=== PATIENT | male | born 1960 ===

== ENCOUNTER 2016-05-12 18:14 | Emergency (ER) | payer OTHER ==
[2016-05-12 18:52] VITALS: BP 111/97
--- NOTE | 2016-05-12 19:19 | UC ---
Respiratory Complaint HPI - HPI Summary HPI Summary: The patient comes in today for: 1. Cough and soreness in the upper right chest Onset: 1 week ago. Palliative/provocative: Coughing makes the right chest hurt and laying on that side. Quality: Dry-itchy cough. Region: Lungs. Severity: 8/10 at this time. But, he appears more like 4/10 Time: Cough comes and goes. Associated symptoms: Last chest x-ray (he had a CT 2-3 weeks ago): negative. "Something was found on the left lung." He was told that "nothing has changed." Chest pain: JUst upper right chest. Dyspnea: only with exertion. Not now. Rhinitis: Only in the morning. * - History of Current Complaint Chief Complaint: UCGeneralIllness Stated Complaint: COUGH CONGESTION Time Seen by Provider: 05/12/16 19:13 Hx Obtained From: Patient - Allergies/Home Medications Allergies/Adverse Reactions: Allergies Allergy/AdvReac Type Severity Reaction Status Date / Time bee stings Allergy Severe Swelling Uncoded 05/12/16 18:52 Home Medications: Home Medications Benazepril (NF) [Lotensin (NF)] 5 mg PO DAILY 05/12/16 [History Confirmed ] Budesonide/Formote 160/4.5(NF) [Symbicort 160/4.5 (NF)] 2 puff INH BID 05/12/16 [History Confirmed 05/12/16] Citalopram TAB* [CeleXA TAB*] 20 mg PO DAILY 05/12/16 [History Confirmed ] Cyclobenzaprine TAB* [Flexeril TAB*] 5 mg PO BID 05/12/16 [History Confirmed ] Diclofenac Sodium (Topical) [Pennsaid] 2 % TD BID PRN 05/12/16 [History Confirmed 05/12/16] Omeprazole CAP* [Prilosec CAP* 20 MG] 20 mg PO DAILY 05/12/16 [History Confirmed 05/12/16] celeCOXIB CAP* [CeleBREX CAP*] 200 mg PO BEDTIME 05/12/16 [History Confirmed ] PMH/Surg Hx/FS Hx/Imm Hx Previously Healthy: No - Low back pain, arthritis Endocrine History Of: Denies: Diabetes, Thyroid Disease, Hyperthyroidism, Hypothyroidism, Dyslipidemia Cardiovascular History Of: Reports: Hypertension Denies: Cardiac Disorders, Pacemaker/ICD, Myocardial Infarction, Congestive Heart Failure, Atrial Fibrillation, Deep Vein Thrombosis, Bleeding Disorders Respiratory History Of: Reports: COPD Denies: Asthma, Bronchitis, Pneumonia, Pulmonary Embolism GI/ History Of: Reports: Gastroesophageal Reflux Denies: Ulcer, Gastrointestinal Bleed, Gall Bladder Disease, Kidney Stones, Diverticulitis, Renal Disease, Urosepsis Neurological History Of: Denies: TIA, CVA, Dementia, Seizures, Migraine Psychological History Of: Reports: Depression Denies: Bipolar Disorder, Schizophrenia, Post Traumatic Stress Disorder Cancer History Of: Denies: Lung Cancer, Colorectal Cancer, Breast Cancer, Prostate Cancer, Cervical Cancer Other History Of: Negative For: HIV, Hepatitis B, Hepatitis C, Anticoagulant Therapy - Surgical History Surgical History: Yes Surgery Procedure, Year, and Place: JAW WIRED - ( WIRE IS REMOVED) -YRS AGO - Family History Known Family History: Positive: Cardiac Disease, Diabetes Negative: Hypertension - Social History Occupation: Disabled - From back. Alcohol Use: Rare Substance Use Type: Marijuana Substance Use Comment - Amount & Last Used: occasional use Smoking Status (MU): Light Every Day Tobacco Smoker Amount Used/How Often: < 1/2 ppd - Immunization History Most Recent Influenza Vaccination: 3063-3559 Most Recent Pneumonia Vaccination: 2016 Review of Systems Constitutional: Negative Skin: Negative Eyes: Negative ENT: Negative, Sore Throat Respiratory: Cough Cardiovascular: Chest Pain Gastrointestinal: Negative Genitourinary: Negative All Other Systems Reviewed And Are Negative: Yes Physical Exam Triage Information Reviewed: Yes Appearance: Well-Appearing, No Pain Distress Vital Signs: Initial Vital Signs Temp 99 F 05/12/16 18:48 Pulse 91 05/12/16 18:48 Resp 17 05/12/16 18:48 BP 111/97 05/12/16 18:48 Pulse Ox 96 05/12/16 18:48 Vital Signs Reviewed: Yes Eyes: Positive: Conjunctiva Clear. Negative: Discharge ENT: Positive: Hearing grossly normal. Negative: Pharyngeal erythema, Nasal congestion, Nasal drainage, TM bulging, TM dull, TM red, Tonsillar swelling, Tonsillar exudate Dental: Negative: Gross Decay/Caries @, Dental Fracture @ Neck: Positive: Supple, Nontender, No Lymphadenopathy. Negative: Nuchal Rigidity Respiratory: Positive: Lungs clear, No respiratory distress, No accessory muscle use Cardiovascular: Positive: RRR, No Murmur Abdomen Description: Positive: Nontender, No Organomegaly, Soft. Negative: Distended, Guarding Musculoskeletal: Positive: Strength Intact, ROM Intact, No Edema, Other: - There is tenderness of the upper right rights (9th to 10th). No subcutaneous emphasema, no ecchymosis. Neurological: Positive: Alert, Muscle Tone Normal Psychological: Positive: Age Appropriate Behavior, Consolable Skin: Negative: rashes, breakdown UC Diagnostic Evaluation - Laboratory O2 Sat by Pulse Oximetry: 96 - Radiology Xray Interpretation: Positive (See Comments) - Non-displaced rib fractures 9 and 10th. Radiology Interpretation Completed By: Radiologist Respiratory Course/Dx - Differential Dx/Diagnosis Provider Diagnoses: Right rib fractures (9 and 10). COPD Discharge - Discharge Plan Condition: Stable Disposition: HOME Patient Education Materials: Rib Fracture (ED), COPD (Chronic Obstructive Pulmonary Disease) (ED) Referrals: Flory Davies PA [Primary Care Provider] - 1 Week Additional Instructions: please stop the albuterol inhaler. Please take the ipratropium inhaler instead of your albuterol inhaler. With the other medications you will be given there is less drug interaction.
[2016-05-12] MEDS ORDERED: HYDROcodone/ACETAMIN 5-325 MG* 1 TAB PO ONE (19:31)
[2016-05-12] MEDS ORDERED: Albuterol 2.5 MG/3 ML NEB.SOL* (0.083%) INH ONE (19:55)
[2016-05-12] MEDS ORDERED: Ipratropium 0.5MG/2.5ML NEB* 0.5 MG/2.5 ML NEB.SOLN INH ONE (19:56)
--- NOTE | 2016-05-12 20:33 | RAD ---
INDICATION: Cough and chest pain and right anterior rib pain. COMPARISON: Similar rib x-rays dated December 28, 2012 TECHNIQUE: PA and lateral views of the chest and 3 views of the right anterior ribs were obtained. FINDINGS: The heart and mediastinum are normal in size and contour. The lungs are grossly clear. There is no evidence of large pleural effusion. There is no radiographic evidence of free air beneath the diaphragm An external marker is seen overlying the right lateral ribs. There are no displaced rib fractures identified. Visualized bones are normal and appropriate for the patient's age. IMPRESSION: NO RADIOGRAPHIC EVIDENCE OF ACUTE CARDIOPULMONARY DISEASE OR DISPLACED RIB FRACTURES.
== END 2016-05-12 21:05 | disposition home or self-care (01) ==
LOC: UCCORT 18:14
DX: S22.41XA Multiple fractures of ribs, right side, initial encounter for closed fracture (principal); X58.XXXA Exposure to other specified factors, initial encounter; Y93.9 Activity, unspecified; Y92.9 Unspecified place or not applicable; J44.9 Chronic obstructive pulmonary disease, unspecified; I10 Essential (primary) hypertension; K21.9 Gastro-esophageal reflux disease without esophagitis; F12.90 Cannabis use, unspecified, uncomplicated; F17.210 Nicotine dependence, cigarettes, uncomplicated
CPT/HCPCS: 71020; 99202; G0463; J7644

== ENCOUNTER 2016-10-24 18:08 | Emergency (ER) | payer MEDICARE, OTHER ==
[2016-10-24 18:36] VITALS: BP 137/98
--- NOTE | 2016-10-24 19:16 | UC ---
Abdominal Pain Male HPI - History of Current Complaint Chief Complaint: UCAbdominalPain Stated Complaint: ABDOMINAL PAIN/BLOOD IN STOOL Time Seen by Provider: 10/24/16 19:08 Hx Obtained From: Patient Onset/Duration: Sudden Onset - last night with fevers, sweats, chills and bloody diarrhea. Diarrhea almost every hour. Timing: Constant Severity Initially: Moderate Severity Currently: Moderate Location: Discrete At: LUQ, Discrete At: LLQ Character: Cramping, Sharp Aggravating Factor(s):: Nothing Alleviating Factor(s): Nothing Associated Signs And Symptoms: Positive: Diaphoresis, Fever, Blood in Stool, Diarrhea - Allergies/Home Medications Allergies/Adverse Reactions: Allergies Allergy/AdvReac Type Severity Reaction Status Date / Time bee stings Allergy Severe Swelling Uncoded 10/24/16 18:27 PMH/Surg Hx/FS Hx/Imm Hx Cardiovascular History: Hypertension Respiratory History: COPD GI/ History: Gastroesophageal Reflux Other History Of: Negative For: HIV, Hepatitis B, Hepatitis C, Anticoagulant Therapy - Surgical History Surgical History: Yes Surgery Procedure, Year, and Place: JAW WIRED - ( WIRE IS REMOVED) -YRS AGO - Family History Known Family History: Positive: Cardiac Disease, Diabetes Negative: Hypertension - Social History Alcohol Use: Rare Substance Use Type: Marijuana Substance Use Comment - Amount & Last Used: occasional use Smoking Status (MU): Heavy Every Day Tobacco Smoker Amount Used/How Often: 1/2 ppd Have You Smoked in the Last Year: Yes - Immunization History Most Recent Influenza Vaccination: 4445-4979 Most Recent Pneumonia Vaccination: 2016 Review of Systems Constitutional: Fever, Chills Gastrointestinal: Abdominal Pain, Diarrhea All Other Systems Reviewed And Are Negative: Yes Physical Exam Triage Information Reviewed: Yes Appearance: No Pain Distress, Well-Nourished, Ill-Appearing - mildly Vital Signs: Initial Vital Signs Temp 97.9 F 10/24/16 18:28 Pulse 96 10/24/16 18:28 Resp 16 10/24/16 18:28 BP 137/98 10/24/16 18:28 Pulse Ox 99 10/24/16 18:28 Vital Signs Reviewed: Yes ENT: Positive: Pharynx normal, TMs normal Neck exam: Normal Respiratory Exam: Normal Cardiovascular Exam: Normal Abdomen Description: Negative: Nontender - Tender LLQ, Guarding Bowel Sounds: Positive: Present Musculoskeletal Exam: Normal Neurological Exam: Normal Psychological Exam: Normal Skin Exam: Normal Abd Pain Male Course/Dx - Differential Dx/Clinical Impression Differential Diagnosis/HQI/PQRI: Appendicitis, Diverticulitis, Ischemic Bowel Provider Diagnoses: Acute diverticulitis. Lower GI bleed - Physician Notification/Consults Discussed Patient Care With: Magnolia Prajapati Time Discussed With Above Provider: 19:18 Instructed by Provider To: Transfer - To [facility] Discharge - Discharge Plan Condition: Guarded Disposition: TRANS HIGHER LVL OF CARE FAC Patient Education Materials: Diverticulitis (ED), Rectal Bleeding (ED) Additional Instructions: Nothing to eat or drink for the time being, until [facility] says that it's ok.
== END 2016-10-24 19:27 | disposition home or self-care (01) ==
LOC: UCCORT 18:08
DX: K57.93 Diverticulitis of intestine, part unspecified, without perforation or abscess with bleeding (principal); R19.7 Diarrhea, unspecified; R61 Generalized hyperhidrosis; I10 Essential (primary) hypertension; J44.9 Chronic obstructive pulmonary disease, unspecified; K21.9 Gastro-esophageal reflux disease without esophagitis; Z91.030 Bee allergy status; F12.90 Cannabis use, unspecified, uncomplicated; F17.210 Nicotine dependence, cigarettes, uncomplicated
CPT/HCPCS: 99211; G0463